=== PATIENT | male | born 2000 | race Two or more races ===

== ENCOUNTER 2024-10-18 08:57 | Emergency (ER) | payer MEDICAID, SELFPAY ==
[2024-10-18 09:12] VITALS: BP 137/83; PULSE 98; RESP 18; TEMP 36.8; O2SAT 99; BMI 28.8
--- NOTE | 2024-10-18 09:24 | EDNOTE_ITS ---
ED Eye Problem RME/HPI General Chief complaint: Eye Problems Stated complaint: Eye pain from welding Time Seen by Provider: 10/18/24 08:58 Arrival date/time: 10/18/24 08:57 24-year-old male presents emergency department complains of bilateral eye pain after welding yesterday patient reports no disturbances in vision patient reports eye irritation and sensitivity to light Limitations: no limitations Related Data Previous Rx's ?Medication ?Instructions ?Recorded ibuprofen 800 mg tablet 800 mg PO TID PRN pain #30 tabs 10/18/24 tobramycin 0.3 %-dexamethasone 0.1 2 drp ophthalmic (eye) QID 7 days 10/18/24 % eye drops,suspension (TobraDex) #10 mL Allergies Allergy/AdvReac Type Severity Reaction Status Date / Time No Known Allergies Allergy Verified 01/21/24 20:27 Review of Systems Review of Systems Systems Reviewed: All systems reviewed, normal except as documented Constitutional Constitutional: Reports system reviewed and no additional complaints, except as documented, Denies fever(s) and Denies headache(s) Eyes Eyes: Reports system reviewed and no additional complaints, except as documented, Denies blurry vision, Denies change in vision, Denies diplopia, Denies eye discharge, Reports irritation and Reports itchy eyes ENT Ears, Nose, Mouth, and Throat: Reports system reviewed and no additional complaints, except as documented, Denies headache(s), Denies nasal congestion and Denies nasal discharge Cardiovascular Cardiovascular: Reports system reviewed and no additional complaints, except as documented, Denies chest pain and Denies dyspnea Respiratory Respiratory: Reports system reviewed and no additional complaints, except as documented, Denies chest congestion, Denies cough and Denies dyspnea Gastrointestinal Gastrointestinal: Reports system reviewed and no additional complaints, except as documented and Denies abdominal pain Integumentary/Breasts Skin/Breast: Reports system reviewed and no additional complaints, except as documented and Denies rash Neurologic Neurologic: Reports system reviewed and no additional complaints, except as documented, Reports as per HPI and Denies headache(s) Allergic/Immunologic Allergic/Immunologic: Reports itchy eyes Past Medical History Past Medical History NEUROLOGIC: Negative Neurological Disorders ED Exam General Limitations: Present no limitations General appearance: Present alert and in no apparent distress Head Head exam: Present atraumatic, normocephalic and normal inspection Eye Eye exam: Present PERRL, EOMI and conjunctival injection; Absent nystagmus, miosis, mydriasis, periorbital swelling or periorbital tenderness ENT ENT exam: Present normal exam, normal oropharynx and mucous membranes moist Neck Neck exam: Present normal inspection, full ROM and trachea midline Chest Chest inspection: Present normal inspection and symmetric chest wall rise Respiratory Respiratory exam: Present normal lung sounds bilaterally Cardiovascular Cardiovascular exam: Present regular rate, normal rhythm and normal heart sounds Abdominal Exam Abdominal exam: Present soft and normal bowel sounds Extremities Exam Extremities exam: Present normal inspection and full ROM Back Exam Back exam: Present normal inspection and full ROM Neurological Exam Neurological exam: Present alert, oriented X3 and CN II-XII intact Psychiatric Psychiatric exam: Present normal affect and normal mood Skin Skin exam: Present warm, dry, intact and normal color Course Quality Measures none Orders Category Date Time Status ED Eye Irrigation ONCE Care 10/18/24 09:15 Active Barr Lamp to Bedside X1 Care 10/18/24 09:15 Completed Fluorescein Sodium [[id number]] Med 10/18/24 09:15 Discontinued 1 mg BOTH EYES X1 ONE Fluorescein Sodium [[id number]] Med 10/18/24 09:15 Discontinued 1 mg LEFT EYE X1 ONE TETRACAINE Op Carole 0.5% [Pontocaine Op Carole 0.5%] Med 10/18/24 09:15 Discontinued 1 drop LEFT EYE X1 ONE Vital Signs Vital signs: Vital Signs Temperature 98.3 F 10/18/24 09:12 Pulse Rate 98 10/18/24 09:12 Respiratory Rate 18 10/18/24 09:12 Blood Pressure 137/83 H 10/18/24 09:12 Pulse Oximetry (%) 99 10/18/24 09:12 Oxygen Delivery Method Room Air 10/18/24 09:12 O2 saturation 99% room air within normal limits Procedures -ED Barr Lamp Exam Bilateral eyes: Flourescein uptake:: Yes Barr Lamp Findings: Normal Eye MDM Narrative MDM Narrative:: 24-year-old male presents emergency department complains of bilateral eye pain after welding yesterday patient reports no disturbances in vision patient reports eye irritation and sensitivity to light On exam patient well-appearing patient does not appear ill or toxic On exam patient well-appearing patient reports no disturbances in vision On exam patient has bilateral conjunctival injection Fluorescein stain and Barr lamp exam performed Patient has no foreign bodies noted in either eye Patient be discharged home a course of antibiotics instructed to follow-up with eye doctor within the next 24 to 48 hours and for any worsening symptoms including any difficulty in vision to return immediately Patient data External records reviewed:: [facility] previous records Clinical information provided by:: patient Social determinants that could affect healthcare access:: none Patient has the following chronic illnesses:: None How is presenting disease/condition affected by chronic disease/condition?: no chronic disease Evaluation data The following diagnostics were reviewed and interpreted by me:: other (specify) Lab and/or radiology exams considered but not ordered:: Consider not ordered Interpretation Summary: N/A Medications / Prescriptions Medications or Prescriptions considered but not ordered:: Given Medication administrations:: Medication Administration History Discontinued Medications Fluorescein Sodium (Fluorescein Sod 1 Mg Strp) 1 mg LEFT EYE X1 ONE Stop: 10/18/24 09:16 Last Admin: 10/18/24 09:30 Dose: 1 mg Documented By: ZEESHAN Fluorescein Sodium (Fluorescein Sod 1 Mg Strp) 1 mg BOTH EYES X1 ONE Stop: 10/18/24 09:16 Last Admin: 10/18/24 09:30 Dose: 1 mg Documented By: ZEESHAN Tetracaine HCl (Tetracaine Pf Op Carole 0.5% 4 Ml Drpette) 1 drop LEFT EYE X1 ONE Stop: 10/18/24 09:16 Last Admin: 10/18/24 09:29 Dose: 1 drop Documented By: ZEESHAN Given Consultations Consultation(s) initiated? (list below): No Diagnosis Eye Problem Differential Diagnosis: acute iritis and hyphema Most likely diagnosis given after review of the tests above:: Bilateral eye irritation Admission Indicated Admission indicated?: not indicated Admission Request Was there a request for admission?: No Disposition Plan Disposition Plan: Discharge Discharge Attestation Discharge Attestation: The patient and all family members were given an opportunity to ask questions and understood the discharge instructions. Discharge instructions specifically effects, indications for sooner follow up or return to the emergency department, and the expected course of current diagnosis. Patient condition: Stable Discharge Plan Plan Patient Disposition: HOME (Self Care) Disposition Comment: Stable Prescriptions/Referrals Prescriptions/Med Rec: New ibuprofen 800 mg tablet 800 mg PO TID PRN (Reason: pain) Qty: 30 0RF tobramycin-dexamethasone [TobraDex] 0.3-0.1 % drops,suspension 2 drp ophthalmic (eye) QID 7 Days Qty: 10 0RF Problem List Clinical Impression: Corneal irritation of both eyes Patient/Caregiver Discharge Instructions Education Materials: How the Eye Works Additional Instructions: Please follow up with your primary care doctor in the next 24-48hrs for any worsening symptoms return here immediately Print Language: Barbadian Stand Alone Forms: Yusra Award Info., Work/School Release, Patient Portal Info Letter PA/AUTOMOTIVE PRODUCT ENGINEER Supervising Physician PA/AUTOMOTIVE PRODUCT ENGINEER Supervising Physician: Dr Romero
[2024-10-18] MEDS: TETRACAINE PF OP SOL 0.5% 4 ML DRPETTE 1 DROP LEFT EYE (09:29)
[2024-10-18] MEDS: FLUORESCEIN SOD 1 MG STRP LEFT EYE (09:30)
[2024-10-18] MEDS: FLUORESCEIN SOD 1 MG STRP BOTH EYES (09:30)
== END 2024-10-18 09:38 | disposition home or self-care (01) ==
LOC: SERX 09:44
PROVIDERS: Emergency Provider Emergency Medicine
DX: H57.89 Other specified disorders of eye and adnexa (principal)
CPT/HCPCS: 99283

== ENCOUNTER 2024-12-14 21:18 | Emergency (ER) | payer MEDICAID, SELFPAY ==
[2024-12-14 21:19] VITALS: BMI 31.1
[2024-12-14 21:46] VITALS: BP 129/83; PULSE 65; RESP 18; TEMP 36.6; O2SAT 98
[2024-12-14] MEDS: PROPARACAINE OP SOL 0.5% 15 ML BTL BOTH EYES (21:54)
[2024-12-14] MEDS: traMADol HCL 50 MG TABLET PO (21:57)
[2024-12-14] MEDS: Erythromycin Op Oint 0.5% 1 GM PACKET BOTH EYES (21:57)
[2024-12-14] MEDS: IBUPROFEN TAB 400 MG TABLET 800 MG PO (21:57)
--- NOTE | 2024-12-14 21:57 | EDNOTE_ITS ---
ED Eye Problem RME/HPI General Chief complaint: Eye Problems Stated complaint: BILATERAL EYE PAIN, WELDING Time Seen by Provider: 12/14/24 21:48 Arrival date/time: 12/14/24 21:18 24 year old male present to emergency room with c/o of bilateral eye pain, report welding and did not have safety glasses on. uptodate with tetanus LOCATION: eye SEVERITY: Symptoms are described as being severe with limitations on activities of daily living CONTEXT: The patient is unable to identify any inciting events. DURATION/TIMING: The symptoms started approximately 1 day ASSOCIATED SYMPTOMS: eye pain, redness, and photo sensitivity MODIFYING FACTORS: The patient is unable to identify any alleviating or aggravating symptoms. PERTINENT ROS: no nausea,vomiting, diarrhea, no dizziness/headache no rash no loc/syncope REVIEW OF SYSTEMS: See History of Present Illness - with the exception of those mentioned in the history of present illness, all other systems reviewed and reported as negative GENERAL: In general the patient is awake, interactive, in an emergency department gurney. HEAD/EYES/EARS/NOSE/THROAT: normo-cephalic, atraumatic, mucus membranes are moist, anicteric, palpebral conjunctiva is pink, trachea is midline. CARDIOVASCULAR: regular rate and regular rhythm, no murmurs, heart sounds are not distant, strong pulses in all four extremities that are equal and symmetric bilateral upper and lower extremities, normal capillary refill. CHEST/PULMONARY: normal chest rise and fall, good air movement, clear to auscultation bilaterally, normal inspiratory to expiratory ratios without evidence of respiratory distress. NECK: No midline/Paraspinal tenderness, no step off ROM/Strenght intact No Kerni g and bruzinski sign. No trauma ABDOMEN: soft, not tender, no masses appreciated BACK: normal range of motion without pain. NEUROLOGICAL: cranio-facial features are symmetric, moves all four extremities equally without obvious limitations or weakness. EXTREMITY: no tenderness to palpation over the long bones or large joints of the bilateral upper and lower extremities, no joint swelling, no joint erythema, no signs of trauma, no unilateral leg swelling and no peripheral edema. SKIN: warm, dry, well-perfused, no jaundice, no rash, no telangiectasias or petechia. PSYCH: calm, cooperative, no evidence of psychosis or agitation Related Data Previous Rx's ?Medication ?Instructions ?Recorded ibuprofen 800 mg tablet 800 mg PO TID PRN pain #30 tabs 10/18/24 erythromycin 5 mg/gram (0.5 %) eye 0.5 inch ophthalmic (eye) QID 7 12/14/24 ointment days #3.5 grams ibuprofen 800 mg tablet (IBU) 800 mg PO TID PRN fever or pain 12/14/24 #30 tabs ketorolac 0.4 % eye drops 1 drp ophthalmic (eye) QID #5 mL 12/14/24 Allergies Allergy/AdvReac Type Severity Reaction Status Date / Time No Known Allergies Allergy Verified 12/14/24 21:20 Course Course Course Narrative: exam consisted with fitter / welder flash visual acuity within normal limits pain improved with alcaine erythromycin ointment applied ibu 800mg and ultram 50mg given oral for pain control Quality Measures none Orders Category Date Time Status Visual Acuity X1 Care 12/14/24 21:51 Active Erythromycin Op Oint 0.5% Med 12/14/24 21:50 Discontinued 1 gm BOTH EYES X1 ONE Ibuprofen Tab [Motrin Tab] Med 12/14/24 21:50 Discontinued 800 mg PO X1 ONE Proparacaine Op Carole 0.5% [Alcaine Op Carole 0.5%] Med 12/14/24 21:49 Discontinued See Dose Instructions BOTH EYES X1 ONE traMADol HCL [Ultram] Med 12/14/24 21:50 Discontinued 50 mg PO X1 ONE Vital Signs Vital signs: Vital Signs Temperature 98 F 12/14/24 21:46 Pulse Rate 65 12/14/24 21:46 Respiratory Rate 18 12/14/24 21:46 Blood Pressure 129/83 12/14/24 21:46 Pulse Oximetry (%) 98 12/14/24 21:46 Oxygen Delivery Method Room Air 12/14/24 21:46 Eye Patient data External records reviewed:: None Clinical information provided by:: patient Social determinants that could affect healthcare access:: none Patient has the following chronic illnesses:: none How is presenting disease/condition affected by chronic disease/condition?: no chronic disease Evaluation data The following diagnostics were reviewed and interpreted by me:: other (specify) Lab and/or radiology exams considered but not ordered:: none Interpretation Summary: none Medications / Prescriptions Medications or Prescriptions considered but not ordered:: none Medication administrations:: Medication Administration History Discontinued Medications Erythromycin (Erythromycin Op Oint 0.5% 1 Gm Packet) 1 gm BOTH EYES X1 ONE Stop: 12/14/24 21:51 Last Admin: 12/14/24 21:57 Dose: 1 gm Documented By: PEARL Co-signed By: NADINE Ibuprofen (Ibuprofen Tab 400 Mg Tablet) 800 mg PO X1 ONE Stop: 12/14/24 21:51 Last Admin: 12/14/24 21:57 Dose: 800 mg Documented By: PEARL Proparacaine HCl (Proparacaine Op Carole 0.5% 15 Ml Btl) 0 drop BOTH EYES X1 ONE Stop: 12/14/24 21:50 Last Admin: 12/14/24 21:54 Dose: 2 drop Documented By: PEARL Tramadol HCl (Tramadol Hcl 50 Mg Tablet) 50 mg PO X1 ONE Stop: 12/14/24 21:51 Last Admin: 12/14/24 21:57 Dose: 50 mg Documented By: PEARL as stated above Consultations Consultation(s) initiated? (list below): No Diagnosis Eye Problem Differential Diagnosis: corneal abrasion, conjunctivitis, corneal ulcer and other (fitter / welder flash ) Most likely diagnosis given after review of the tests above:: fitter / welder flash Admission Indicated Admission indicated?: not indicated Admission Request Was there a request for admission?: No Disposition Plan Disposition Plan: Discharge Discharge Attestation Discharge Attestation: The patient and all family members were given an opportunity to ask questions and understood the discharge instructions. Discharge instructions specifically effects, indications for sooner follow up or return to the emergency department, and the expected course of current diagnosis. 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
[2024-12-14 22:39] VITALS: RESP 18
== END 2024-12-14 22:40 | disposition home or self-care (01) ==
LOC: SERX 22:18
PROVIDERS: Emergency Provider Emergency Medicine
DX: H16.133 Photokeratitis, bilateral (principal)
CPT/HCPCS: 99282; A9270